=== PATIENT | male | born 1950 | race Caucasian/White ===

== ENCOUNTER 2022-02-16 18:37 | Emergency (ER) | payer OTHER ==
[~2022-02-16] VITALS: Ht 182.9 cm; Wt 63.0 kg
[2022-02-16] MEDS ORDERED: cefTRIAXone SOD 1,000 MG VL IV ONE (19:15)
[2022-02-16 20:35] LABS: Red Blood Cells 4.61 10^6/uL (4.5-5.90)
[2022-02-16 20:37] LABS: Hematocrit 35.6 % (41.0-53.0); Hemoglobin 11.9 g/dL (13.5-17.5); Mean Corpuscular Hemoglobin 25.7 pg (28.0-32.0); Mean Corpuscular Hgb Conc. 33.3 g/dL (32.0-36.0); Mean Corpuscular Volume 77.2 fL (80.0-100.0); Red Cell Distribution Width 16.7 % (11.8-14.3); White Blood Cell 3.5 10^3/uL (4.4-10.8)
[2022-02-16 20:46] LABS: Basophils % (manual) 0 (0.0-2.0); Blast Cells 0; Eosinophils % (manual) 0 (0-7); Metamyelocytes % 0; Myelocytes % 0; Promyelocytes % 0; Reactive Lymphocytes 0
[2022-02-16 21:08] LABS: Band Neutrophils % (manual) 1; Lymphocytes % (manual) 5 (10.0-50.0); Monocytes % (manual) 9 (0-12)
[2022-02-16 22:00] VITALS: BP 126/75
[2022-02-16] MEDS ORDERED: AMOX500T86 PO (22:02)
[2022-02-16 22:53] LABS: Alanine Aminotransferase 14 U/L (16-61); Alkaline Phosphatase 93 U/L (45-117); Anion Gap 10 (5-15); Aspartate Aminotransferase 21 U/L (15-37); Blood Urea Nitrogen 18 mg/dL (7-18); Carbon Dioxide 22 mmol/L (21-32); Chloride 103 mmol/L (98-107); GFR African American 138 mL/min; GFR Non-African American 114 mL/min; Glucose 193 mg/dL (74-106); Potassium 3.7 mmol/L (3.5-5.1); Sodium 135 mmol/L (136-145)
[2022-02-16 22:54] LABS: Albumin 2.8 g/dL (3.4-5.0); Blood Alcohol < 3.0 mg/dL (0-5); Calcium 7.8 mg/dL (8.5-10.1); Total Protein 6.5 g/dL (6.4-8.2)
== END 2022-02-16 23:25 | disposition home or self-care (01) ==
LOC: ER 18:37 → EDBD 18:37 → ER 23:25
DX: K05.10 Chronic gingivitis, plaque induced (principal); K04.7 Periapical abscess without sinus; I10 Essential (primary) hypertension; E11.9 Type 2 diabetes mellitus without complications; E78.5 Hyperlipidemia, unspecified
CPT/HCPCS: 36415; 71045; 80053; 80320; 85007; 85027; 96374; 99284; J0696; 96365